=== PATIENT | female | born 1980 | race Caucasian/White ===

== ENCOUNTER 2021-09-28 10:08 | Emergency (ER) | payer OTHER, SELFPAY ==
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
[2021-09-28 10:40] VITALS: BP 124/86; PULSE 72; RESP 18; TEMP 36.6; O2SAT 98; BMI 25.7
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
[2021-09-28] MEDS: Butalb/Acetamin/Caff 50/325/40 TABLET 1 TAB PO (11:39)
[2021-09-28] MEDS: Ondansetron ODT 4 MG TAB.RAPDIS TRANSLINGU (11:39)
[2021-09-28 11:40] VITALS: PULSE 80; RESP 16; O2SAT 99
== END 2021-09-28 13:10 | disposition home or self-care (01) ==
PROVIDERS: Emergency Provider Emergency Medicine; PCP Internal Medicine
DX: S09.90XA Unspecified injury of head, initial encounter (principal); S13.4XXA Sprain of ligaments of cervical spine, initial encounter; Y04.2XXA Assault by strike against or bumped into by another person, initial encounter; R11.0 Nausea; R51.9 Headache, unspecified; Y93.89 Activity, other specified; Y92.219 Unspecified school as the place of occurrence of the external cause; Y99.0 Civilian activity done for income or pay
CPT/HCPCS: 70450; 99284

== ENCOUNTER → 2021-10-01 13:10 | Outpatient (BNVA) | payer OTHER, SELFPAY | PROVIDERS: PCP Internal Medicine; Visit Provider Internal Medicine | DX: S16.1XXA Strain of muscle, fascia and tendon at neck level, initial encounter (principal); S29.012A Strain of muscle and tendon of back wall of thorax, initial encounter; Y04.2XXA Assault by strike against or bumped into by another person, initial encounter | CPT/HCPCS: 99203 ==

== ENCOUNTER → 2021-10-15 08:41 | Outpatient (BNVA) | payer OTHER, SELFPAY | PROVIDERS: PCP Internal Medicine; Visit Provider Internal Medicine | DX: S16.1XXD Strain of muscle, fascia and tendon at neck level, subsequent encounter (principal); S29.012D Strain of muscle and tendon of back wall of thorax, subsequent encounter; Y04.8XXD Assault by other bodily force, subsequent encounter; F41.9 Anxiety disorder, unspecified | CPT/HCPCS: 99214 ==

== ENCOUNTER → 2021-10-23 08:34 | Outpatient (BNVA) | payer OTHER, SELFPAY | PROVIDERS: PCP Internal Medicine; Visit Provider Internal Medicine | DX: M54.2 Cervicalgia (principal); F43.0 Acute stress reaction; F41.9 Anxiety disorder, unspecified | CPT/HCPCS: 99214 ==

== ENCOUNTER → 2021-11-02 09:31 | Outpatient (BNVA) | payer OTHER, SELFPAY | PROVIDERS: PCP Internal Medicine; Visit Provider Internal Medicine | DX: F41.1 Generalized anxiety disorder (principal) | CPT/HCPCS: 99213 ==

== ENCOUNTER → 2021-11-09 09:47 | Outpatient (BNVA) | payer OTHER, SELFPAY | PROVIDERS: PCP Internal Medicine; Visit Provider Internal Medicine | DX: F41.9 Anxiety disorder, unspecified (principal) | CPT/HCPCS: 99213 ==

== ENCOUNTER → 2021-11-19 09:05 | Outpatient (BNVA) | payer OTHER, SELFPAY | PROVIDERS: PCP Internal Medicine; Visit Provider Internal Medicine | DX: F43.12 Post-traumatic stress disorder, chronic (principal); Y04.2XXD Assault by strike against or bumped into by another person, subsequent encounter; Z56.89 Other problems related to employment | CPT/HCPCS: 99213 ==

== ENCOUNTER → 2021-12-04 10:40 | Outpatient (BNVA) | payer OTHER, SELFPAY | PROVIDERS: PCP Internal Medicine; Visit Provider Internal Medicine | DX: S29.012D Strain of muscle and tendon of back wall of thorax, subsequent encounter (principal); Y04.2XXD Assault by strike against or bumped into by another person, subsequent encounter | CPT/HCPCS: 99213 ==

== ENCOUNTER → 2021-12-21 10:52 | Outpatient (BNVA) | payer OTHER, SELFPAY | PROVIDERS: PCP Internal Medicine; Visit Provider Internal Medicine | DX: S16.1XXD Strain of muscle, fascia and tendon at neck level, subsequent encounter (principal); Y04.8XXD Assault by other bodily force, subsequent encounter; F41.9 Anxiety disorder, unspecified | CPT/HCPCS: 99213 ==

== ENCOUNTER → 2022-01-05 10:25 | Outpatient (BNVA) | payer OTHER, SELFPAY | PROVIDERS: PCP Internal Medicine; Visit Provider Internal Medicine | DX: F41.1 Generalized anxiety disorder (principal); S16.1XXD Strain of muscle, fascia and tendon at neck level, subsequent encounter; S29.012D Strain of muscle and tendon of back wall of thorax, subsequent encounter; Y04.2XXD Assault by strike against or bumped into by another person, subsequent encounter | CPT/HCPCS: 72050; 72072; 99214 ==

== ENCOUNTER → 2022-01-19 11:31 | Outpatient (BNVA) | payer OTHER, SELFPAY | PROVIDERS: PCP Internal Medicine; Visit Provider Internal Medicine | DX: M54.9 Dorsalgia, unspecified (principal); M25.512 Pain in left shoulder; M25.511 Pain in right shoulder | CPT/HCPCS: 99213 ==

== ENCOUNTER → 2022-02-18 09:43 | Outpatient (BNVA) | payer OTHER, SELFPAY | PROVIDERS: PCP Internal Medicine; Visit Provider Internal Medicine | DX: M54.2 Cervicalgia (principal); M54.50 Low back pain, unspecified | CPT/HCPCS: 99213 ==